=== PATIENT | male | born 1975 | race Caucasian/White ===

== ENCOUNTER 2022-01-19 11:01 | Emergency (ER) | payer SELFPAY ==
--- NOTE | ~2022-01-19 | XR_ITS ---
XR finger 3rd LT min 2V DATE: 01/19/2022 11:20 INDICATION: Fall, proximal pain TECHNIQUE: 4 views COMPARISON: None FINDINGS: There is a linear oblique fracture through the mid to distal shaft of the proximal phalanx with approximately 2.2 mm lateral and up to 2.7 mm anterior displacement. No other fracture or dislocation, periosteal reaction or bone destruction. IMPRESSION: Proximal phalanx fracture Reviewed, dictated and finalized at location B. IMPRESSION: Proximal phalanx fracture
--- NOTE | 2022-01-19 11:02 | ED.UPPEXIN ---
HPI - Extremity Injury (Upper) General Stated Complaint: Middle Finger Lt Hand Pain Time Seen by Provider: 01/19/22 11:02 Source: patient Mode of arrival: ambulatory Limitations: no limitations History of Present Illness HPI narrative: Mrs. Vazquez is a 46-year-old male patient presenting to the clinic today with complaints of left third finger pain. He reports he tripped over his dog's this morning and injured his left third finger. He is unsure of exactly how he injured his finger. Related Data Home Medications Medication Instructions Recorded Confirmed No Home Medications 01/19/22 01/19/22 Allergies Allergy/AdvReac Type Severity Reaction Status Date / Time No Known Allergies Allergy Verified 01/19/22 11:14 Review of Systems Review of Systems: Pertinent positives per HPI. Patient denies any fever, chills, rash, headache, visual changes, dizziness, cough, runny nose, sore throat, shortness of breath, chest pain, palpitations, nausea, vomiting, diarrhea, constipation, abdominal pain, or any urinary issues. PMFSH Comments At the time of my signature, I reviewed and agree with the nursing past medical, surgical, social, and family history. There is no relevant family history pertinent to the patient complaint. Exam Narrative: General: Well-developed, well nourished, in no apparent distress Head: Normocephalic, atraumatic. Cardio: Regular rate and rhythm, s1 and s2 normal, no murmur appreciated. Resp: Clear to auscultation bilaterally, no rhonchi, rales, wheezing or rubs. Musculoskeletal: No deformity,tender to palpation over the proximal finger, PIP joint, and over the DIP joint, pain with flexion and extension of the finger, normal range of motion but painful against resistance, muscle strength strong and equal, peripheral pulse strong, no edema, no cyanosis, normal gait and station Course Course Emergency Course: Portions of this record may have been created with voice recognition software. Level of Care: Express Care Visit Vital Signs Vital signs: Vital signs reviewed MDM - Extremity Injury (Upper) MDM Narrative Medical decision making narrative: At the time of visit patient is resting comfortably on the exam table. Imaging Data Attestation: I personally reviewed and interpreted this imaging study as follows: My impression: Proximal phalanx finger fracture Radiologist's impression: Express [address] [id number] [phone] XRay Report Signed Patient: Lamberto Acosta : 1975 MR#: [id number] Age/Sex: 46 / M Acct:[id number] Loc: [facility]? ? ADM Date: 01/19/22Attending Dr: Ordering Physician: Augie Rodrigues APRN Date of Service: 01/19/22 Procedure(s): XR finger 3rd LT min 2V Accession Number(s): [id number] cc: Augie Rodrigues APRN; FARM TRUCK DRIVER PHYSICIAN~ XR finger 3rd LT min 2V DATE: 01/19/2022 11:20 INDICATION: Fall, proximal pain? TECHNIQUE: 4 views? COMPARISON: None? FINDINGS: There is a linear oblique fracture through the mid to distal shaft of the proximal phalanx with approximately 2.2 mm lateral and up to 2.7 mm anterior displacement. No other fracture or dislocation, periosteal reaction or bone destruction. IMPRESSION: Proximal phalanx fracture? Reviewed, dictated and finalized at location B. Dictated By:? Son Ontiveros MD? 01/19/22 1127 Signed By:? ? <Electronically signed by? Son Ontiveros MD in OV> 01/19/22 1131 Discharge Plan Discharge Clinical Impression: Finger fracture, left Patient Disposition: Home, Self-Care Condition: Stable Instructions: Antibiotic Form, Finger Fracture (ED) Additional Instructions: X-ray shows a oblique displaced proximal finger fracture Rest, ice, and elevate May apply ice to the affected area 20
[2022-01-19 11:12] VITALS: BP 134/86; PULSE 89; RESP 16; TEMP 36.4; O2SAT 98
== END 2022-01-19 11:44 | disposition home or self-care (01) ==
PROVIDERS: Emergency Provider Nurse Practitioner Family
DX: S62.613A Displaced fracture of proximal phalanx of left middle finger, initial encounter for closed fracture (principal); W01.0XXA Fall on same level from slipping, tripping and stumbling without subsequent striking against object, initial encounter
CPT/HCPCS: 29130; 73140; 99214; G0463

== ENCOUNTER 2022-01-28 02:12 | Day surgery (SDC) | payer OTHER, SELFPAY ==
[2022-01-21 14:46] VITALS: BMI 24.9
--- NOTE | 2022-01-21 14:52 | PC.NURSE ---
Report to the Outpatient Waiting Room, entrance under the green pavilion located off [facility], at time 0730 on date 01/28/22. OR Time: 0930. Time changes happen often and if your time is changed the preop area will call you the afternoon before. - You and your visitor will be asked to self-screen and do not enter if you have any COVID symptoms. - Only one visitor and NO children visitors are allowed at this time. - The patient visitor is requested to leave or wait in car when not with patient due to restrictions. - A mask is required within the hospital. Patients may have clear liquids (water, carbonated beverages, clear teas, apple juice) until 3 hours prior to surgery with a maximum of 20 ounces. - No food from midnight until time of surgery Take the following medications with a SIP of water the morning of surgery: NONE Medications to discontinue per physician: IBUPROFEN Date to take last dose: PER DR. FONTNAA Please no make-up, nail setswana, hairspray, perfume, deodorant, or body powder the day of surgery. No jewelry (including any body piercings) or valuables the day of surgery, leave them at home. Please take a shower or bath the night before, or the morning of, surgery with an antibacterial soap. Wear comfortable, loose fitting clothing. - Jewelry must be removed prior to entering the operating room. Rings and piercings that are not removed may be cut off. - The hospital will not accept responsibility for valuables. - Please leave all valuables, including medications, at home the day of surgery. If you are going home after surgery, a licensed bicycle taxi driver must drive you home. - NO public transportation without another adult. - We recommend that an adult stay with you for 24 hours following discharge. - We also recommend that you do not drive, make important decision, drink alcoholic beverages, or take any drugs that were not prescribed by your health care provider for at least 24 hours after your discharge time. Follow any additional instructions given to you from your surgeon. If you or anyone in your household have experienced Covid symptoms in the past week, please notify your surgeon or the nurse liaison at the phone number below for possible testing. Telephone instructions given to CAROLIN MERIDA and asked if any additional questions and then verbalized understanding. Patient advised to call surgeon office or pre surgery nurse liaison [phone] if any additional questions.
[2022-01-28] VITALS (8 sets, daily range): BP systolic 121–146; BP diastolic 74–96; PULSE 52–85; RESP 12–16; TEMP 36.2–36.3; O2SAT 97–100
--- NOTE | ~2022-01-28 | XR_ITS ---
EXAMINATION: XR surgery orthopedic DATE: 01/28/2022 11:46 INDICATION: ORIF fracture of the proximal phalanx of the left middle finger TECHNIQUE: 5 fluoroscopic images of the proximal phalanx of the left third digit were obtained during procedure performed by Dr. Bond. Radiologist was not present for the imaging or procedure. The [facility] nt of fluoroscopy time used during this procedure was 6.1 minutes. COMPARISON: 01/19/2022 FINDINGS: Interval reduction and internal fixation of an oblique extra articular diaphyseal fracture of the lef t third proximal phalanx. The fracture is fixed with a pair of screws and is now in near-anatomic ali gnment. No new fractures identified. Joint spaces are unremarkable. IMPRESSION: 1. Near-anatomic alignment post open reduction internal fixation of an extra articular fracture at th e left third proximal phalanx. Reviewed, dictated and finalized at location A. IMPRESSION: 1. Near-anatomic alignment post open reduction internal fixation of an extra ar ticular fracture at the left third proximal phalanx.
[2022-01-28] MEDS: ACETAMINOPHEN 500 MG TABLET 1000 MG PO (07:48)
[2022-01-28] MEDS: LACTATED RINGERS 1,000 ML 30 ML IV CONT ×2 (08:08→11:41)
[2022-01-28] MEDS: KETOROLAC 15 MG/ML VIAL (*BKC) IV PUSH (08:12)
--- NOTE | 2022-01-28 08:41 | WPDHPUPDATE1 ---
History and Physical Update Update Date/Time: 01/28/22 08:41 History and Physical has been reviewed, including an updated exam of the patient. There are NO changes in the patient's condition. Risks, benefits, and alternatives have been discussed and questions answered. Patient agrees to proceed with procedure.
--- NOTE | 2022-01-28 08:56 | P.PNAN_ITS ---
Anes - Initial Pre Proc Eval Procedure: Operation Date: 01/28/22 09:30 Proposed Procedures p Open Reduction Internal Fixation Left Middle Finger Proximal Phalanx - Valdez Bond MD Date/Time: 01/28/22 08:56 Surgeon: Valdez Bond MD Pre Op Diagnosis: fx of shaft proximal phalanx left middle Patient Data Age: 46 Gender: M Height: 1.83 m Weight: 85.5 kg Last Vital Signs Temp 36.3 C L 01/28/22 07:55 Pulse 64 01/28/22 07:55 Resp 16 01/28/22 07:55 BP 121/74 01/28/22 07:55 Pulse Ox 100 01/28/22 07:55 O2 Del Method Room Air 01/28/22 07:55 Allergies Allergy/AdvReac Type Severity Reaction Status Date / Time No Known Allergies Allergy Verified 01/28/22 07:44 Home Medications Medication Instructions Recorded Confirmed Type diphenhydramine 25 1 tablet PO HS PRN Pain 01/21/22 01/28/22 History mg-acetaminophen 500 mg tablet (Tylenol PM Extra Strength) ibuprofen 800 mg tablet 800 mg PO TID PRN Pain 01/21/22 01/28/22 History Patient hx anesthesia problems: none Family hx anesthesia problems: none Results Review: All pre-operative results and documents have been reviewed as part of the pre- operative evaluation. [facility] Social History Social History Smoking status: Never smoker Alcohol intake: current Drinks per week: 3 Substance use: current Substance use type: marijuana Other substance usage details: EDIBLES Living arrangements: with family Spiritual care concerns: No Anes - Eval Final PreProcedure Day of Procedure 01/28/22 08:56 Patient weight: normal Heart: regular rate and rhythm Lungs: clear to auscultation and normal air movement Airway: Mallampati scale class II Neurological: alert and oriented Last oral intake: >/= 8 hours ASA classification: II Emergent: no Anesthetic plan: proceed Anesthesia type and monitoring: general GIVS Results Review: All pre-operative results and documents have been reviewed as part of the pre- operative evaluation. Informed Consent: The patient's anesthetic plan and its attendant risks and benefits were discussed with the patient/family/POA. Questions were solicited and answers provided to the satisfaction of the patient/family/POA.
[2022-01-28] MEDS: ceFAZolin 2 GM/D5W 50 ML 2 GM/50 ML BAG IVPB (09:07)
[2022-01-28] MEDS: LIDO 1%/EPINEPHRINE 1:100,000 10 ML VIAL 20 ML INFILTRATE (11:29)
--- NOTE | 2022-01-28 11:57 | P.OP_ITS ---
Procedure Note - Detailed Date of Procedure 01/28/22 Pre-op Diagnosis fx of shaft proximal phalanx left middle Post-op Diagnosis Same Procedure Performed Open reduction and internal fixation with 2 lag screws of a displaced fracture of the proximal phalanx of the left middle finger Surgeon Valdez Bond MD Spray Machine Tender Beena Anesthesia General Indications Acute closed displaced oblique fracture of the diaphysis of the proximal phalanx of the left middle finger Description of Procedure The patient's left middle finger was marked in the holding area. His questions were answered and he was then taken to the operating room where he was placed supine on the operating table. He was given general endotracheal anesthesia. The left upper extremity was prepped and draped in usual fashion. A pneumatic tourniquet was applied. A time-out was held and confirmed. Initial C-arm image was made confirming the nature of the fracture. A local anesthetic was infiltrated as palmar common digital nerve blocks. Marking was made for a mid lateral incision on the proximal phalanx. A 25 gauge needle was inserted into the fracture line to provide orientation. The extremity was exsanguinated with an Lavon wrap and the tourniquet inflated 250 mmHg. The incision was made as marked and dissection was carried through the subcutaneous tissue to expose the extensor mechanism. Multiple attempts were made to reduce this fracture without incising the periosteum and apply a bone tenaculum. This proved to be unsuccessful. The C-wire was driven vertically through the base of the distal phalanx and heavy silk sutures attached to that for application of distraction force. We were not able to obtain satisfactory reduction. The solution was to further extend the incision both directions and also open the periosteum to visualize the fracture. As little dissection as possible was performed until we were able to reduce the fracture and apply a bone tenaculum. This allowed placement of a transverse 0.035 in C-wire to stabilize the fragments. A 2nd similar C-wire was placed more proximally. The tenaculum was removed. A distally placed 1.5 mm lag screw was passed. Adequate reduction and compression was achieved. One C-wire was removed and an additional 1.5 mm lag screw placed more proximally through the existing C-wire hole which was enlarged at the proximal cortex producing a glide hole. Both screw heads were countersunk. Images revealed an anatomic reduction and satisfactory placement of screws. All C-wires were removed. The tourniquet was released at 105 minutes. . The 2nd lag screw was placed after release of the tourniquet.The skin was closed with a running 5 0 nylon There was minimal bleeding at the final closure. A Xeroform and gauze bandage was applied without compression. No splint was applied. The middle and ring fingers were wrapped together. No additional local anesthetic was placed. Estimated Blood Loss -2.0 Tourniquet Time 105 Drains No Packing No Pathology None sent Complications No immediate complications Condition Stable Disposition PACU
== END 2022-01-28 13:15 | disposition home or self-care (01) ==
PROVIDERS: Visit Provider Plastic Surgery
PROC: (CPT 26735; principal; 2022-01-28 09:30)
DX: S62.613A Displaced fracture of proximal phalanx of left middle finger, initial encounter for closed fracture (principal); T14.90XA Injury, unspecified, initial encounter
CPT/HCPCS: 26735; 99199; A9270; C1713; J0690; J1100; J1885; J2250; J2405; J2704; J3010; J7120

== ENCOUNTER 2022-02-22 07:52 | Outpatient (RCR) | payer OTHER, SELFPAY ==
--- NOTE | 2022-02-22 09:47 | OTOPEVAL1 ---
Assessment and note entered by Helen Phelps OTR/L Evaluation Information Assessment Status Evaluation Diagnosis Digit 3 proximal phalanx fracture with ORIF 2021 Subjective Information Patient reports stiffness with occasional pain with flexion and achiness with finger extension. 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 Patient would like to get back to daily and work tasks without pain and stiffness in L digit 3. Reported Pain Level Pain Score 0: Self Report Assessment OT Clinical Summary Lamberto is a 46 year old male who presents to Outpatient OT following a ORIF for a proximal phalanx fracture of L digit 3 on 01/28/2022. 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 Patient demonstrates decreased electric motor assembler strength and barillas pinch strength of L hand. Patient would benefit from skilled OT for dynamic splinting, modalities, education of UE exercises including ROM and progressive strengthening in order to improve optimal use of L hand for functional and daily tasks. Plan of Care Interventions Therapeutic Exercise,Manual Therapy,Therapeutic Activities,Hot Pack/Cold Pack,Check Out for Orthotic/Pr,Paraffin OT Services Indicated Yes These treatments will address the objective and functional deficits as defined above. The patient will be advanced safely and appropriately in order for the patient to progress towards his/her prior level of function. Additional exercises will be introduced and as well as a comprehensive home exercise program upon discharge, if needed, ?to ensure carryover of functional gains achieved in the clinic. This treatment plan has been reviewed and agreement upon by the patient.
--- NOTE | 2022-03-31 10:48 | OTOPDC ---
Assessment and note entered by Helen Phelps OTR/Kiko Evaluation Information Assessment Status Discharge - Pt Not Presen Assessment OT Clinical Summary Patient initially evaluated for OT on 02/22/2022. Patient has not attended visits since initial evaluation. Patient is to be discharged from skilled OT at this time. If patient wishes to return will need a new order from MD. Plan of Care OT Services Indicated No
== END 2022-03-31 16:11 | disposition home or self-care (01) ==
LOC: ANHOT 07:52
PROVIDERS: Visit Provider Plastic Surgery
DX: Z47.89 Encounter for other orthopedic aftercare (principal); M65.332 Trigger finger, left middle finger; M25.642 Stiffness of left hand, not elsewhere classified
CPT/HCPCS: 97110; 97165; L3806